=== PATIENT | female | born 1945 | race Caucasian/White ===

== ENCOUNTER 2022-03-13 10:37 | Emergency (ER) | payer MEDICARE ==
[~2022-03-13] VITALS: Ht 157.5 cm; Wt 64.4 kg
[2022-03-13] MEDS ORDERED: ASPI81TA31 PO (10:42)
[2022-03-13 10:59] LABS: HEMATOCRIT 36.4 % (31.2-41.9); MEAN CORPUSCULAR HEMOGLOBIN 28.8 uug (24.7-32.8); MEAN CORPUSCULAR VOLUME 89.5 fL (75.5-95.3); PLATELET COUNT (AUTO) 244 K/uL (179-408)
[2022-03-13] MEDS ORDERED: ONDANSETRON 4 MG/2 ML VIAL IV ONE (11:00)
[2022-03-13] MEDS ORDERED: IV NORMAL SALINE 1000 ML BAG IV ONE (11:00)
[2022-03-13] MEDS ORDERED: FENTANYL CITRATE 100 MCG/2 ML AMPUL IV ONE (11:00)
[2022-03-13] MEDS ORDERED: FENTANYL CITRATE 100 MCG/2 ML AMPUL ONE (11:02)
[2022-03-13] MEDS ORDERED: ONDANSETRON 4 MG/2 ML VIAL ONE (11:02)
[2022-03-13 11:06] LABS: CARBON DIOXIDE 29 mmol/L (21-32); CHLORIDE 108 mmol/L (98-107); CREATININE 1.4 mg/dL (0.6-1.3); GLUCOSE 99 mg/dL (74-106); POTASSIUM 4.1 mmol/L (3.5-5.1); UREA NITROGEN, BLOOD 26 mg/dL (7-18)
[2022-03-13] MEDS ORDERED: MORPHINE SULFATE 4 MG/1 ML DISP.SYRIN IV PRN (13:15)
[2022-03-13] MEDS ORDERED: IV NS 1000 ML 1,000 ML IV PRN (13:15)
[2022-03-13] MEDS ORDERED: ACETAMINOPHEN 325 MG TABLET PO PRN (13:15)
[2022-03-13] MEDS ORDERED: ONDANSETRON 4 MG/2 ML VIAL IV PRN (13:15)
[2022-03-13] MEDS ORDERED: MAGNESIUM HYDROXIDE 30 ML LIQUID UDC PO PRN (13:15)
[2022-03-13] MEDS ORDERED: REMEDY ESSENTIAL ZINC PASTE 113 GM TP PRN (13:15)
--- NOTE | 2022-03-13 13:30 | NUR ---
Called floor, "no rooms available."
--- NOTE | 2022-03-13 14:25 | NUR ---
IV removed. Catheter intact and site benign. Pressure and 4x4 gauze applied to site. No bleeding noted.
--- NOTE | 2022-03-13 14:30 | NUR ---
Patient does not wish to proceed with medical care. Patient and daughter given information related to possible complications, up to and including , which could occur as a result of leaving the hospital at this time. Patient and daughter verbalized understanding of risks involved due to leaving against medical advice. Patient has signed AMA form.
[2022-03-14] MEDS ORDERED: ASPIRIN 81 MG TAB.CHEW PO SCH (09:00)
== END 2022-03-13 14:32 | disposition left against medical advice (07) ==
LOC: ER 10:37
DX: S82.841A Displaced bimalleolar fracture of right lower leg, initial encounter for closed fracture (principal); W01.0XXA Fall on same level from slipping, tripping and stumbling without subsequent striking against object, initial encounter; Y92.89 Other specified places as the place of occurrence of the external cause; Z85.118 Personal history of other malignant neoplasm of bronchus and lung; Z85.3 Personal history of malignant neoplasm of breast; Z92.21 Personal history of antineoplastic chemotherapy; Z79.82 Long term (current) use of aspirin; Z20.822 Contact with and (suspected) exposure to COVID-19; N17.9 Acute kidney failure, unspecified
CPT/HCPCS: 27810; 80048; 85025; 85730; 87426; 36415; 93005; 71045; 73610; 99285; 96361; 96374; J2405; J3010; J7040; A4663